=== PATIENT | male | born 1950 | race Caucasian/White ===

== ENCOUNTER → 2021-04-28 | Outpatient (CLI) | payer MEDICARE ==
--- NOTE | 2021-04-28 21:52 | CONS ---
CONSULTATION DATE OF SERVICE: 04/28/2021. HISTORY: A 70-year-old gentleman has been evaluated in the sleep center for possible obstructive sleep apnea-hypopnea syndrome. HISTORY OF PRESENT ILLNESS/SLEEP WAKE EVALUATION: The patient's usual sleep schedule from 11 p.m. to 6 or 7 a.m. No problems with falling asleep. No TV in bedroom. He sleeps on the side position. He snores and wakes up from sleep 2 times with nocturia. No history of hypnagogic hallucinations, sleep paralysis or cataplexy. [place] Sleepiness Scale increased to 6. The patient usually does not take naps. PAST MEDICAL HISTORY: Positive for episodes of paroxysmal atrial fibrillation, diabetes mellitus, hypothyroidism, BPH. PAST SURGICAL HISTORY: Tonsillectomy, adenoidectomy, nephrolithiasis on the left side. MEDICATIONS: Metformin 850 mg twice a day, glipizide 5 mg once a day, enalapril 5 mg once a day, levothyroxine 130 mcg once a day, ____2.5 mg once a day, Eliquis 5 mg twice a day, 12.5 mg once a day. SOCIAL HISTORY: Positive for smoking, but quit 20 years ago. Alcohol consumption occasional. FAMILY HISTORY: Cancer, heart problems. REVIEW OF SYSTEMS: Awakenings from sleep. PHYSICAL EXAMINATION: GENERAL: A pleasant gentleman without distress. VITAL SIGNS: 106/65, HR 63, RR 15, height 5 feet 8 inches, weight 209.2, temperature 97.6, oxygen saturation at room air 95%. HEENT: Oropharynx low position of soft palate, Mallampati 3-4. Wide neck 17-1/4 inches in circumference. LUNGS: Clear to percussion and to auscultation. Good air exchange. No wheezing or rhonchi. HEART: S1, S2 regular. No murmurs, gallops, or rubs. ABDOMEN: Soft and nontender. Bowel sounds are present. No organomegaly appreciated. EXTREMITIES: No clubbing or cyanosis. RESIDENTIAL TECH: Awake, alert, and oriented X3. Cranial nerves 2 to 7 intact. There is no fasciculation or atrophy. noted. No focal deficits observed. IMPRESSION: 1. Snoring, awakenings from sleep with nocturia, low position of soft palate, Mallampati 3-4, wide neck 17-1/4 inches in circumference, obstructive sleep apnea- hypopnea syndrome. 2. History of atrial fibrillation. 3. Diabetes mellitus. 4. Hypothyroidism. 5. History of BPH 6. 6. History of nephrolithiasis on the left side. 7. Status post tonsillectomy and adenoidectomy. PLAN: 1. Polysomnography for evaluation of patient's breathing during sleep. 2. CPAP/BiPAP titration if sleep study confirms obstructive sleep apnea-hypopnea syndrome. 3. Preferable position during sleep on the side. 4. No driving if patient feels any sleepiness. 5. I will see patient for follow up visit to explain results of testing and following plan. Thank you very much for referring this patient for consultation. Samuel Connell MD, PhD, FAASM Diplomat of [employer] [employer] [employer] [facility] [place] MMODL / IJN: [id number] /
== END ==
LOC: SLEEP 14:52
PROVIDERS: ATTEND Internal Medicine
DX: G47.33 Obstructive sleep apnea (adult) (pediatric) (principal); E11.9 Type 2 diabetes mellitus without complications; E03.9 Hypothyroidism, unspecified; I48.0 Paroxysmal atrial fibrillation; Z90.89 Acquired absence of other organs; Z87.442 Personal history of urinary calculi; Z87.438 Personal history of other diseases of male genital organs; Z79.01 Long term (current) use of anticoagulants; Z79.899 Other long term (current) drug therapy; Z79.890 Hormone replacement therapy; Z87.891 Personal history of nicotine dependence
CPT/HCPCS: 99202